=== PATIENT | female | born 1985 | race American Indian/Alaskan Native ===

== ENCOUNTER 2022-07-05 21:31 | Emergency (ER) | payer OTHER ==
[~2022-07-05] VITALS: Ht 160 cm; Wt 63.5 kg
[~2022-07-05 21:31] MED LIST: CARAFATE SU1 G/10 ML PO; PEPCID20 MG PO; PRENATAL CAPLE1 EACH PO; ZANTAC150 M3 PO; ZOFRAN4 MG PO
[2022-07-05] MEDS ORDERED: PEPCID AC10 MG PO (21:49)
== END 2022-07-06 04:42 | disposition home or self-care (01) ==
LOC: ER 21:31
DX: K29.70 Gastritis, unspecified, without bleeding (principal); Z91.010 Allergy to peanuts; Z88.2 Allergy status to sulfonamides; Z91.018 Allergy to other foods

== ENCOUNTER 2025-02-22 15:20 | Inpatient (IN) | payer OTHER ==
[~2025-02-22] VITALS: Ht 152.4 cm; Wt 65.3 kg
[~2025-02-22 15:20] MED LIST changes: +PEPCID AC10 MG PO
[2025-02-22 16:09] LABS: BASO % 0.2 % (0.1-1.2); EOS # 0.25 (0.04-0.54); EOS % 2.2 % (0.7-7.0); LYMPH # 1.99 (1.18-3.74); LYMPH % 17.3 % (19.3-53.1); MEAN PLATELET VOLUME 9.80 fl (9.4-12.4); MONO # 0.68 (0.24-0.82); MONO % 5.9 % (4.7-12.5); NEUT # 8.53 (1.56-6.13); NEUT % 74.1 % (34.0-71.1); RED CELL DISTRIBUTION WIDTH 11.7 % (11.6-14.4)
[2025-02-22 16:11] LABS: URINE APPEARANCE Clear; URINE BILIRRUBIN Negative (NEGATIVE); URINE BLOOD Negative; URINE COLOR Yellow; URINE GLUCOSE Negative (NEGATIVE); URINE KETONE 15 (NEGATIVE); URINE LEUKOCYTE Small; URINE NITRATE Negative; URINE PROTEIN Trace (NEGATIVE); URINE UROBILINOGEN 1.0 E.U./dl
[2025-02-22 16:14] LABS: URINE CAST 1.41 uL (0.0-1.40); URINE EPITHELIAL CELLS 69.4 uL (0.0-38.8); URINE RBC 13.1 uL (0.0-20.8); URINE WBC 86.9 uL (0.0-23.2)
[2025-02-22 16:44] LABS: ALT/SGPT 22.0 U/L (12-78); AST/SGOT 18.0 U/L (15-37); BILIRUBIN TOTAL 0.24 mg/dL (0.3-1.2); BUN CREA RATIO 18.0 (7.0-25.0); CREATININE SERUM 0.5 mg/dL (0.55-1.02); GFR 138.83; GLOBULINA 4.0 G/DL (2.4-3.5); GLUCOSE FASTING 75.0 mg/dL (65-100); OSMOLALITY SERUM 275.0 MOSM/KG (275-295)
[2025-02-22 18:34] VITALS: BP 100/64
[2025-02-22] MEDS ORDERED: PROMETHAZINE HCL 50 MG/ML AMPUL IM SCH (19:31)
[2025-02-22] MEDS ORDERED: MULTIVIT INFUSN,ADULT 4,VIT K 10 ML VIAL IV SCH (19:45)
[2025-02-22] MEDS ORDERED: FAMOTIDINE/PF 20 MG/2 ML VIAL IV SCH (21:00)
[2025-02-23] VITALS: BP 91/57
[2025-02-23 08:00] VITALS: BP 107/80
[2025-02-23] MEDS ORDERED: METOCLOPRAMIDE HCL 10 MG in DEXTROSE 5 % IN WATER 50 ML IV SCH (09:21)
[2025-02-23] MEDS ORDERED: ONDANSETRON HCL 2 MG/ML VIAL IV PRN (09:30)
[2025-02-23 19:31] VITALS: BP 90/60
[2025-02-24 02:50] VITALS: BP 90/60
[2025-02-24 09:37] VITALS: BP 98/61
[2025-02-24] MEDS ORDERED: METOCLOPRAMIDE10 MG PO (11:35)
[2025-02-24] MEDS ORDERED: PEPCID AC20 MG PO (11:36)
[2025-02-24] MEDS ORDERED: DICLEGIS DR 101 EACH PO (11:37)
[2025-02-24] MEDS ORDERED: ZOFRAN8 MG PO (11:38)
== END 2025-02-24 12:02 | disposition home or self-care (01) | DRG 833 ==
LOC: OB/GYN 15:20
PROVIDERS: ADMIT Obstetrics & Gynecology; ATTEND Obstetrics & Gynecology
PROC: 4A1HXCZ Monitoring of Products of Conception, Cardiac Rate, External Approach (ICD-10-PCS; principal; 2025-02-22)
DX: O21.0 Mild hyperemesis gravidarum (principal); O26.891 Other specified pregnancy related conditions, first trimester; G43.A1 Cyclical vomiting, in migraine, intractable; K52.9 Noninfective gastroenteritis and colitis, unspecified; Z3A.10 10 weeks gestation of pregnancy